=== PATIENT | female | born 1995 | race Caucasian/White ===

== ENCOUNTER 2024-05-24 16:02 | Emergency (ER) | payer OTHER ==
[2024-05-24] MEDS ORDERED: Ibuprofen 800 MG TAB ONE (16:55)
[2024-05-24] MEDS ORDERED: Ondansetron ODT 4 MG TAB ONE (17:26)
== END 2024-05-24 17:35 | disposition home or self-care (01) ==
LOC: MADERS 16:02
DX: S06.0X1A Concussion with loss of consciousness of 30 minutes or less, initial encounter (principal); S02.2XXA Fracture of nasal bones, initial encounter for closed fracture; V80.010A Animal-rider injured by fall from or being thrown from horse in noncollision accident, initial encounter; Y93.52 Activity, horseback riding
CPT/HCPCS: 70450; 70486; Q0162